=== PATIENT | male | born 1995 ===

== ENCOUNTER → 2024-12-25 | Emergency (ER) | payer SELFPAY ==
[~2024-12-25] VITALS: Ht 182.9 cm; Wt 77.3 kg
[2024-12-25 20:19] VITALS: BP 140/90; PULSE 125; RESP 20; TEMP 97.4; O2SAT 98
== END | disposition still patient (30) ==
LOC: EMS 20:13
DX: S40.811A Abrasion of right upper arm, initial encounter (principal); S40.812A Abrasion of left upper arm, initial encounter; V89.2XXA Person injured in unspecified motor-vehicle accident, traffic, initial encounter; Y93.89 Activity, other specified; Y92.89 Other specified places as the place of occurrence of the external cause; Y99.8 Other external cause status
CPT/HCPCS: 99283; Z7502